=== PATIENT | male | born 1990 | race African-American/Black ===

== ENCOUNTER 2018-05-08 22:42 | Emergency (ER) | payer SELFPAY ==
[~2018-05-08] VITALS: Ht 172.7 cm; Wt 72.6 kg
[2018-05-08 22:50] VITALS: BP 128/81
[2018-05-08] MEDS ORDERED: DOXYCYCLINE MO100 MG ORAL (23:33)
--- NOTE | 2018-05-08 23:39 | Emergency Room Report ---
History of Present Illness General Chief Complaint: Male Urogenital Problems Source: Patient Present Illness HPI Patient is a 28-year-old male who presented after increased urethral discharge and burning sensation the past 2 days. Patient reports having recent sex. He denies any fever. He denies any testicular swelling. Patient been urinating normally. He denied any flank pain. Allergies: Coded Allergies: No Known Allergies (Unverified , 05/08/18) Patient History Past Medical History: see triage record Reviewed Nursing Documentation: PMH: Agreed; PSxH: Agreed Nursing Documentation-PMH Past Medical History: No Stated History Review of Systems All Other Systems: negative except mentioned in HPI Physical Exam Vital Signs Date Time Temp Pulse Resp B/P (MAP) Pulse Ox O2 Delivery O2 Flow Rate FiO2 05/08/18 22:47 98.0 84 18 128/81 99 Room Air 98.1 General Appearance: well appearing, no apparent distress, alert, GCS 15 Head: normocephalic, atraumatic ENT: hearing grossly normal, normal voice Neck: full range of motion, supple Respiratory: no respiratory distress, speaking full sentences Gastrointestinal: normal inspection, non tender, soft, no mass Musculoskeletal: normal inspection, back normal, digits/nails normal, normal range of motion, no calf tenderness Neurologic: normal inspection, alert, oriented x3, responsive, info print press operator III-XII nml as tested, normal gait Psychiatric: normal inspection, mood/affect normal Skin: no rash Medical Decision Making Diagnostic Impression: Primary Impression: Urethritis ER Course Patient presented for dysuria. Differential diagnosis included was not limited to appendicitis, urinary tract infection, urethritis, herpes among others. Patient has a benign exam and does not appear to require any further imaging or laboratory testing at this time. The patient appears to have a urethritis which is likely sexual transmitted. Patient being empirically treated for dissection transmitted infections. Patient advised outpatient testing. The patient is prescribed doxycycline.The patient is advised to follow up with primary care doctor in 1-2 days. Patient is advised to return if any worsening condition or if any changes in status that are concerning. This report is dictated with [employer] repeater chief software which may occasionally lead to discrepancies related to use of this software. Last Vital Signs Date Time Temp Pulse Resp B/P (MAP) Pulse Ox O2 Delivery O2 Flow Rate FiO2 05/08/18 22:47 98.0 84 18 128/81 99 Room Air 98.1 Status: improved Disposition: HOME, SELF-CARE Condition: Stable Scripts Doxycycline Monohydrate* (DOXYCYCLINE MONOHYDRATE*) 100 Mg Capsule 100 MG ORAL TWICE A DAY, #14 CAP 0 Refills Prov: Jerardo Rascon MD 05/08/18 Referrals: NOT CHOSEN IPA/,REFERRING (PCP) Patient Instructions: Urethritis, Adult Jerardo Rascon MD May 08, 2018 23:39
[2018-05-08] MEDS ORDERED: Lidocaine 1% MPF 10mg/ml 5ml INJ ONE (23:45)
[2018-05-08 23:50] VITALS: BP 0/0
== END 2018-05-08 23:50 | disposition home or self-care (01) ==
LOC: EMR 23:10
DX: N34.2 Other urethritis (principal); R30.0 Dysuria
CPT/HCPCS: 96372; 99283; J0696